=== PATIENT | male | born 1970 | race Two or more races ===

== ENCOUNTER 2016-11-15 11:21 | Outpatient (CLI) ==
[2013-05-02 15:45] VITALS: BMI 28.5
--- NOTE | 2016-11-15 13:12 | MRI ---
EXAM: MRI lumbar spine without IV contrast. DATE: 11/15/2016. HISTORY: Low back pain, left side sciatica. TECHNIQUE: Sagittal and axial T1W and T2W sequences of the lumbar spine along with sagittal IR and coronal T2W sequences were obtained using 1.2 Janna magnet. No IV contrast. COMPARISON: None. FINDINGS: There are five [id number] lumbar vertebra. At the lumbosacral junction, there is a transitional vertebra consistent with partial lumbarization of S1. There is no lumbar scoliosis. A 2 mm anterior subluxation of L5 relative to S1 is due to facet dise ase. No other subluxation, acute fracture, osseous malignancy, or pars interarticularis defect is i dentified. Lumbar vertebra are normal in height. Bone marrow signal is normal. Lumbar interverteb ral discs are normal in height. A small disc space has formed at S1-2. No sacral fracture or stres s reaction is evident. SI joints are unremarkable. Conus medullaris terminates at T12-L1. Visible spinal cord is normal. No retroperitoneal lymphadenopathy, paraspinal mass, or aortic aneurysm is detected. Paraspinal mus culature is symmetric bilaterally. Visible portions of the liver, adrenal glands, and kidneys are n ormal. Small number descending colon diverticuli are suspected. Segmental analysis: T12-L1: Normal. L1-2: Minimal left foraminal to far lateral disc bulge causes minor left foraminal narrowing. No c entral canal stenosis. L2-3: Normal. L3-4: Normal. L4-5: Minimal posterior to foraminal disc bulge and minor facet arthropathy cause triangulation of the canal, mild right foraminal stenosis, and minor/mild left foraminal narrowing. L5-S1: Minor anterior subluxation of L5, small concentric disc bulge, marked bilateral facet arthro randa, and moderate ligamentum flavum hypertrophy cause marked central canal stenosis, mild/moderate foraminal stenosis, and mild left foraminal narrowing. Each L5 nerve root contacts the disc bulge in the foramen. Small right facet effusion is present. S1-2: Thecal sac is narrowed due to short pedicles and epidural fat. IMPRESSIONS: 1. Five classic lumbar vertebra, plus partial lumbarization of S1. 2. Marked facet arthropathy, small disc bulge, marked central stenosis, bilateral foraminal stenose s, and compromise of each L5 nerve root near the foramen - - make L5-S1 the most likely level to be symptomatic.
== END 2016-11-15 11:22 | disposition home or self-care (01) ==
LOC: RAD 11:21
PROVIDERS: ATTEND Family Medicine
DX: M54.42 Lumbago with sciatica, left side (principal)

== ENCOUNTER 2017-01-11 23:29 | Emergency (ER) ==
[2017-01-11 23:38] VITALS: BP 160/100; TEMP 97.4; BMI 33.5
[2017-01-12] MEDS ORDERED: ZOFRAN 4 MG/2 ML IVP STA (00:07)
[2017-01-12] MEDS ORDERED: PROTONIX IV IVP STA (00:07)
[2017-01-12] MEDS ORDERED: SODIUM CHLORIDE 1,000 ML IV STA (00:07)
[2017-01-12] MEDS ORDERED: MORPHINE 2 MG/ML SYRINGE IVP STA (00:07)
[2017-01-12 00:23] LABS: BASOPHILS % (AUTO) 0.2 % (0.0-3.0); HEMATOCRIT 44.1 % (42.0-52.0); HEMOGLOBIN 15.6 g/dl (14.0-18.0); IMMATURE GRANULOCYTE % (AUTO) 1.1 % (0.0-5.0); LYMPHOCYTES # (AUTO) 1.3 K/uL (0.60-3.4); LYMPHOCYTES % (AUTO) 15.6 (10.0-50.0); MEAN CORPUSCULAR HEMOGLOBIN 32.8 pg (27.0-31.0); MEAN CORPUSCULAR HGB CONC 35.4 (31.8-35.4); MEAN CORPUSCULAR VOLUME 92.8 fl (80.0-94.0); MONOCYTES # (AUTO) 0.7 K/uL (0.4-2.0); MONOCYTES % (AUTO) 8.1 (0-10); NEUTROPHILS # (AUTO) 6.3 K/ul (2.0-6.9); PLATELET COUNT 167 10^3/uL (140-440); RED BLOOD COUNT 4.75 10^6/ul (4.70-6.10); WHITE BLOOD COUNT 8.39 K/ul (4.2-10.2)
[2017-01-12 00:53] LABS: ALANINE AMINOTRANSFERASE 76 U/L (12-78); ALBUMIN/GLOBULIN RATIO 1.14; ALKALINE PHOSPHATASE 86 U/L (50-136); AMYLASE 115 U/L (25-115); ANION GAP 10.3; ASPARTATE AMINO TRANSFERASE 39 U/L (15-37); BILIRUBIN,TOTAL 0.33 mg/dL (0.00-1.20); BLOOD UREA NITROGEN 20 mg/dL (7-18); BUN/CREATININE RATIO 22.47; CALCIUM 9.2 mg/dL (8.2-10.2); CARBON DIOXIDE 31 mmol/L (21-32); CHLORIDE 101 mmol/L (98-107); CREATINE KINASE 128 U/L; CREATININE 0.89 mg/dL (0.60-1.10); GLUCOSE 198 mg/dL (70-100); LIPASE 79 U/L (8-78); POTASSIUM 4.3 mmol/L (3.5-5.1); SODIUM 138 mmol/L (136-145); TOTAL PROTEIN 7.5 g/dL (6.4-8.2)
[2017-01-12 00:57] LABS: CREATINE KINASE MB 2.6 ng/ml (0.0-3.6)
--- NOTE | 2017-01-12 01:47 | CT ---
Exam: CT angiography of the chest History: Left chest pain Technique: [address] of the chest utilizing CT angiography protocol. Multiplanar and th ree-dimensional reformations were performed. FINDINGS: Technically adequate for evaluation of pulmonary arteries and aorta. There are no pulmon yanet artery filling defects. The aorta is normal. No pathologic lymph node enlargement or abundance . Normal heart and pericardium. The lung windows show no pulmonary parenchymal abnormalities. No acute findings of the chest wall soft tissues or bony thorax. No acute findings of the upper abdome n. Impression: 1. No evidence of pulmonary artery thrombus. No abnormalities of the chest.
--- NOTE | 2017-01-12 04:53 | ED.PDOC ---
General ED Provider: Dr. ZENA RAMOS-ER Chief Complaint: Chest Pain Stated Complaint: my chest is hurting Time Seen by Physician: 23:35 Mode of Arrival: Walk-In Information Source: Patient, Family Exam Limitations: No limitations Primary Care Provider: ZENA RAMOS Nursing and Triage Documentation Reviewed and Agree: Yes Cardiovascular Complaint Exam - Chest Pain Complaint/Exam Onset: Gradual Duration: 30 min Symptoms Are: Still present Timing: Constant Initial Severity: Mild Current Severity: Moderate Location: Reports: Discrete, Left anterior Pain Radiates: Reports: None Character: Reports: Dull, Aching, Heaviness, Pressure Aggravating: Reports: None Alleviating: Reports: None Associated Signs and Symptoms: Denies: Diaphoresis, Nausea, Vomiting, Fever, Palpitations, Cough, Hemoptysis, Back pain, Abdominal pain, Dizziness, Short of air, Calf pain, Calf swelling Related Surgical History: Reports: None History of Healthcare-Acquired Pneumonia: Reports: No AMI/ACS Risk Factors: Reports: Diabetes TAD Risk Factors: Reports: None Pulmonary Embolism Risk Factors: Reports: None Prior Care for this Complaint: No Recent Stress Test: No Recent Echo/LV Function: No JVD Present: No Subcutaneous Emphysema Present: No Diminshed Breath Sounds: No Reproducible Chest Wall Pain: No Bilateral Pulses Present: Yes Unequal Pulses Noted: No If Risk Factors for PE Consider: Chest CT with contrast If Risk Factors for TAD Consider: Chest CT with contrast Tractor Drill Operator Consulted: No Differential Diagnoses: ACS, Chest Wall Pain, GI Diseasae, Pulmonary Embolism Quality Indicator For Non-Traumatic Chest Pain/Syncope: EKG Performed Review of Systems - Review Of Systems Constitutional: Reports: No symptoms Eyes: Reports: No symptoms Ears, Nose, Mouth, Throat: Reports: No symptoms Respiratory: Reports: No symptoms Cardiac: Reports: Chest pain GI: Reports: No symptoms : Reports: No symptoms Musculoskeletal: Reports: No symptoms Skin: Reports: No symptoms Neurological: Reports: No symptoms Endocrine: Reports: No symptoms Hematologic/Lymphatic: Reports: No symptoms All Other Systems: Reviewed and Negative Past Medical History - Past Medical History Endocrine: Reports: DM 2 Cardiovascular: Reports: None Respiratory: Reports: None Hematological: Reports: None Gastrointestinal: Reports: None Genitourinary: Reports: None Neuro/Psych: Reports: None Musculoskeletal: Reports: None Cancer: Reports: None - Surgical History General Surgical History: Reports: Unknown - Family History Family History: Reports: Unknown - Social History Smoking Status: Never smoker Hx Substance Use: No Alcohol Screening: Occasionally Lives: With family Physical Exam - Physical Exam Appearance: Well-appearing, No pain distress, Well-nourished Pain Distress: Moderate Eyes: DIEGO, EOMI, Conjunctiva clear ENT: Ears normal, Nose normal, Oropharynx normal Neck: Supple Respiratory: Airway patent Cardiovascular: RRR, Pulses normal, No rub, No murmur GI/: Soft, Nontender, No masses, Bowel sounds normal, No Organomegaly Musculoskeletal: Normal strength, ROM intact, No edema, No calf tenderness Skin: Warm, Dry, Normal color Neurological: Sensation intact, Motor intact, Reflexes intact, Cranial nerves intact, Alert, Oriented Psychiatric: Affect appropriate Interpretation - Radiology Interpretation Radiology Interpretation By: Radiologist Radiology Results: Negative Exam Interpreted: CT Scan - EKG Interpretation Time of EKG #1: 23:45 Rate: Gian Rhythm: Sinus Ectopy: None [place]: NL ST Segment: Normal Time of EKG #2: 03:25 Rate: Normal Rhythm: Sinus Ectopy: None [place]: NL ST Segment: Normal EKG Interpretation: nsr Re-Evaluation - Re-Evaluation Time of Re-Evaluation: 04:54 Status: Improved Vital Signs Stable: No Pain Level: 0 Appearance: NAD Lungs: Clear Skin: Warm and Dry Neuro: Alert and Oriented X3 CV: RRR Critical Care Note - Critical Care Note Total Time (mins): 0 Course - Course Hematology/Chemistry: 01/12/17 00:10 01/12/17 00:10 Orders, Labs, Meds: Lab Review 01/12/17 01/12/17 00:10 03:45 WBC 8.39 RBC 4.75 Hgb 15.6 Hct 44.1 MCV 92.8 MCH 32.8 H MCHC 35.4 RDW Coeff of Antonio 13.4 Plt Count 167 Immature Gran % (Auto) 1.1 Neut % (Auto) 75.0 Lymph % (Auto) 15.6 [place] % (Auto) 8.1 Eos % (Auto) 0.0 Baso % (Auto) 0.2 Immature Gran # (Auto) 0.1 Neut # 6.3 Lymph # 1.3 [place] # 0.7 Eos # 0.0 Baso # 0.0 D-Dimer (Manual) 207.38 Sodium 138 Potassium 4.3 Chloride 101 Carbon Dioxide 31 Anion Gap 10.3 BUN 20 H Creatinine 0.89 Estimated GFR (MDRD) 91.00 BUN/Creatinine Ratio 22.47 Glucose 198 H Calcium 9.2 Total Bilirubin 0.33 AST 39 H ALT 76 Alkaline Phosphatase 86 Total Creatine Kinase 128 CK-MB (CK-2) 2.6 CK-MB (CK-2) % 2.41464 Troponin I < 0.0100 < 0.0100 Total Protein 7.5 Albumin 4.0 Globulin 3.5 Albumin/Globulin Ratio 1.14 Amylase 115 Lipase 79 H Orders Category Date Time Status EKG-(ED ONLY) Stat CARDIO 01/12/17 00:06 Completed EKG-(ED ONLY) Stat CARDIO 01/12/17 03:22 Ordered NPO REMINDER: IMAGING ONCE CARE 01/12/17 00:08 Completed ED RESISTOR TESTER APPLIED .ONCE EMERGENCY 01/12/17 00:07 Active ED IV/MEDIPORT/POWERPORT .ONCE EMERGENCY 01/12/17 00:07 Active AMYLASE Stat LAB 01/12/17 00:10 Completed CBC W/ AUTO DIFF Stat LAB 01/12/17 00:10 Completed COMPREHENSIVE METABOLIC PANEL Stat LAB 01/12/17 00:10 Completed CREATINE KINASE Stat LAB 01/12/17 00:10 Completed D-DIMER Stat LAB 01/12/17 03:45 Completed LIPASE Stat LAB 01/12/17 00:10 Completed TROPONIN I Stat LAB 01/12/17 00:10 Completed TROPONIN I Stat LAB 01/12/17 03:45 Completed 0.9 % Sodium Chloride [Saline Flush] MEDS 01/12/17 00:07 Ordered 1 syr IVF PRN PRN Morphine Sulfate [Morphine 2 mg/ml Syringe] MEDS 01/12/17 00:07 Discontinued 2 mg IVP ONCE STA Ondansetron HCl/Pf [Zofran 4 mg/2 ml] MEDS 01/12/17 00:07 Discontinued 4 mg IVP ONCE STA Pantoprazole Sodium [Protonix IV] MEDS 01/12/17 00:07 Discontinued 40 mg IVP ONCE STA Sodium Chloride 0.9% [Sodium Chloride] 1,000 ml MEDS 01/12/17 00:07 Active IV 100 mls/hr CT CHEST PE PROTOCOL Stat RADS 01/12/17 00:08 Completed Medications Generic Name Dose Route Start Last Admin Trade Name Freq PRN Reason Stop Dose Admin Sodium Chloride 1,000 mls @ 100 mls/hr 01/12/17 00:07 01/12/17 00:28 Sodium Chloride IV 01/12/17 10:06 100 mls/hr .Q10H STA Administration Sodium Chloride 1 syr 01/12/17 00:07 01/12/17 00:27 Saline Flush IVF 1 syr PRN PRN Administration To flush IV Discontinued Medications Generic Name Dose Route Start Last Admin Trade Name Freq PRN Reason Stop Dose Admin Morphine Sulfate 2 mg 01/12/17 00:07 01/12/17 00:19 Morphine 2 Mg/Ml Syringe IVP 01/12/17 00:08 2 mg ONCE STA Administration Ondansetron HCl 4 mg 01/12/17 00:07 01/12/17 00:23 Zofran 4 Mg/2 Ml IVP 01/12/17 00:08 4 mg ONCE STA Administration Pantoprazole Sodium 40 mg 01/12/17 00:07 01/12/17 00:24 Protonix Iv IVP 01/12/17 00:08 40 mg ONCE STA Administration Vital Signs: Temp Pulse Resp BP Pulse Ox 01/11/17 23:29 97.4 F L 62 16 160/100 H 98 TONEY Risk Score TONEY Risk Score: Risk Score Odds of by 30D 0 0.1 (0.1-0.2) 1 0.3 (0.2-0.3) 2 0.4 (0.3-0.5) 3 0.7 (0.6-0.9) 4 1.2 (1.0-1.5) 5 2.2 (1.9-2.6) 6 3.0 (2.5-3.6) 7 4.8 (3.8-6.1) Departure - Departure Time of Disposition: 04:54 Disposition: HOME SELF-CARE Discharge Problem: Chest pain Instructions: Chest Pain (ED) Condition: Good Pt referred to PMD for follow-up: Yes Additional Instructions: hold metformin till saturday---protonix 40mg q daily #30---see me next week to schedule stress test--if any further chest pain--return here--start 81mg asa per day Allergies/Adverse Reactions: Allergies No Known Drug Allergies Adverse Reaction (Verified 01/11/17 23:38) Home Medications: Ambulatory Orders Metformin HCl [Fortamet] 1,000 mg PO BID 05/02/13 Hydrocodone/Acetaminophen [Hydrocodon-Acetaminophen 5-325] 1 each PO ev 4 hrs PRN 02/15/16 Methylprednisolone [Medrol Dosepak] 4 mg PO DIRECTED 01/11/17 Disposition Discussed With: Patient
== END 2017-01-12 05:05 | disposition home or self-care (01) ==
LOC: ED 23:29
DX: R07.9 Chest pain, unspecified (principal); E11.9 Type 2 diabetes mellitus without complications; Z79.899 Other long term (current) drug therapy
CPT/HCPCS: 36415; 80053; 82150; 82550; 82553; 83690; 84484; 85025; 85379; 93005; 93010; 96361; 96374; 96375; 99283

== ENCOUNTER 2017-02-08 23:02 | Emergency (ER) ==
[2017-02-08 23:12] VITALS: BP 156/92; TEMP 97.4; BMI 31.6
[2017-02-08] MEDS ORDERED: NORVASC PO STA (23:21)
[2017-02-08 23:34] LABS: BASOPHILS % (AUTO) 0.6 % (0.0-3.0); EOSINOPHILS # (AUTO) 0.1 K/ul (0.0-0.7); HEMATOCRIT 43.4 % (42.0-52.0); HEMOGLOBIN 15.5 g/dl (14.0-18.0); IMMATURE GRANULOCYTE % (AUTO) 0.4 % (0.0-5.0); LYMPHOCYTES # (AUTO) 2.5 K/uL (0.60-3.4); LYMPHOCYTES % (AUTO) 35.7 (10.0-50.0); MEAN CORPUSCULAR HEMOGLOBIN 33.2 pg (27.0-31.0); MEAN CORPUSCULAR HGB CONC 35.7 (31.8-35.4); MEAN CORPUSCULAR VOLUME 92.9 fl (80.0-94.0); MONOCYTES # (AUTO) 0.6 K/uL (0.4-2.0); MONOCYTES % (AUTO) 8.5 (0-10); NEUTROPHILS # (AUTO) 3.8 K/ul (2.0-6.9); NEUTROPHILS % (AUTO) 53.8; PLATELET COUNT 150 10^3/uL (140-440); RED BLOOD COUNT 4.67 10^6/ul (4.70-6.10); WHITE BLOOD COUNT 7.06 K/ul (4.2-10.2)
--- NOTE | 2017-02-08 23:42 | CT ---
EXAM: CT scan brain without contrast HISTORY: Headache COMPARISON: None. FINDINGS: Contiguous axial images obtained from the skull base to the convexities without contrast utilizing 5-mm collimation. Sagittal and coronal reconstructions were imaged and reviewed. The vent ricles and CSF spaces are within normal limits. There are no acute intracranial findings. There is opacification of the left sphenoid sinus. Right mastoid air cells clear. There has been prior lef t mastoidectomy. IMPRESSION: No acute intracranial findings. Benign sinus disease
[2017-02-09 00:14] LABS: ALANINE AMINOTRANSFERASE 91 U/L (12-78); ALBUMIN/GLOBULIN RATIO 1.08; ALKALINE PHOSPHATASE 79 U/L (50-136); ANION GAP 13.9; ASPARTATE AMINO TRANSFERASE 54 U/L (15-37); BLOOD UREA NITROGEN 19 mg/dL (7-18); BUN/CREATININE RATIO 20.87; CALCIUM 9.6 mg/dL (8.2-10.2); CARBON DIOXIDE 28 mmol/L (21-32); CHLORIDE 103 mmol/L (98-107); CREATINE KINASE 321 U/L; CREATININE 0.91 mg/dL (0.60-1.10); GLUCOSE 98 mg/dL (70-100); POTASSIUM 3.9 mmol/L (3.5-5.1); SODIUM 141 mmol/L (136-145); TOTAL PROTEIN 7.7 g/dL (6.4-8.2)
[2017-02-09 00:15] LABS: CREATINE KINASE MB 4.8 ng/ml (0.0-3.6)
[2017-02-09] MEDS ORDERED: VASOTEC IV IVP STA (00:39)
[2017-02-09] MEDS ORDERED: APRESOLINE PO STA (00:40)
[2017-02-09] MEDS ORDERED: NORCO 5-325 PO STA (00:41)
[2017-02-09 00:49] LABS: BILIRUBIN,URINE Negative (NEGATIVE); KETONES,URINE Negative (NEGATIVE); LEUKOCYTE ESTERASE ,URINE Negative (NEGATIVE); NITRITE,URINE Negative (NEGATIVE); PROTEIN,URINE Negative (NEGATIVE); URINE, BLOOD Negative (NEGATIVE)
[2017-02-09 00:50] LABS: ADD URINE MICROSCOPIC NO
--- NOTE | 2017-02-09 02:20 | ED.PDOC ---
General ED Provider: Dr. ZENA RAMOS-ER Chief Complaint: Headache Stated Complaint: my bp is up and my pulse is low Time Seen by Physician: 23:05 Mode of Arrival: Walk-In Information Source: Patient Exam Limitations: No limitations Primary Care Provider: ZENA RAMOS Nursing and Triage Documentation Reviewed and Agree: Yes Cardiovascular Complaint Exam - Hypertension Complaint/Exam Onset/Duration: today Symptoms Are: Still present Timing: Constant Reported B/P Prior to Arrival: 180/90 Aggravating: Reports: None Alleviating: Reports: None Associated Signs and Symptoms: Reports: Headache Related History: Reports: Current Beta Francia Related Surgical History: Reports: None Cardiac Risk Factors: Reports: Hypertension Recent Change in Medications: No A/V Nicking: No Papilledema Present: No JVD Present: No Carotid Bruit Present: No Femoral Pulses Bounding: No Differential Diagnoses: Hypertension Quality Indicator For Non-Traumatic Chest Pain/Syncope: EKG Performed Review of Systems - Review Of Systems Constitutional: Reports: No symptoms Eyes: Reports: No symptoms Ears, Nose, Mouth, Throat: Reports: No symptoms Respiratory: Reports: No symptoms Cardiac: Reports: Lightheadedness GI: Reports: No symptoms : Reports: No symptoms Musculoskeletal: Reports: No symptoms Skin: Reports: No symptoms Neurological: Reports: No symptoms Endocrine: Reports: No symptoms Hematologic/Lymphatic: Reports: No symptoms All Other Systems: Reviewed and Negative Past Medical History - Past Medical History Endocrine: Reports: DM 2 Cardiovascular: Reports: None Respiratory: Reports: None Hematological: Reports: None Gastrointestinal: Reports: None Genitourinary: Reports: None Neuro/Psych: Reports: None Musculoskeletal: Reports: None Cancer: Reports: None - Surgical History General Surgical History: Reports: Unknown - Family History Family History: Reports: Unknown - Social History Smoking Status: Never smoker Hx Substance Use: No Alcohol Screening: Occasionally Lives: With family - Immunizations Tetanus Shot up to Date: No Physical Exam - Physical Exam Appearance: Well-appearing, No pain distress, Well-nourished Pain Distress: Mild Eyes: DIEGO, EOMI, Conjunctiva clear ENT: Ears normal, Nose normal, Oropharynx normal Neck: Supple Respiratory: Airway patent, Breath sounds clear, Breath sounds equal, Respirations nonlabored Cardiovascular: RRR, No rub, No murmur, Bradycardia GI/: Soft Musculoskeletal: Normal strength Skin: Warm, Dry, Normal color Neurological: Sensation intact, Motor intact, Reflexes intact, Cranial nerves intact, Alert, Oriented Psychiatric: Affect appropriate, Mood appropriate Interpretation - Radiology Interpretation Radiology Interpretation By: Radiologist Radiology Results: Negative Exam Interpreted: CT Scan Re-Evaluation - Re-Evaluation Time of Re-Evaluation: 02:20 (bp 120/78--no mohamud) Status: Improved Vital Signs Stable: Yes Pain Level: 0 Appearance: NAD Lungs: Clear Skin: Warm and Dry Neuro: Alert and Oriented X3 CV: RRR Critical Care Note - Critical Care Note Total Time (mins): 0 Course - Course Hematology/Chemistry: 02/08/17 23:33 02/08/17 23:33 Orders, Labs, Meds: Lab Review 02/08/17 02/09/17 23:33 00:45 WBC 7.06 RBC 4.67 L Hgb 15.5 Hct 43.4 MCV 92.9 MCH 33.2 H MCHC 35.7 H RDW Coeff of Antonio 13.8 Plt Count 150 Immature Gran % (Auto) 0.4 Neut % (Auto) 53.8 Lymph % (Auto) 35.7 [place] % (Auto) 8.5 Eos % (Auto) 1.0 Baso % (Auto) 0.6 Immature Gran # (Auto) 0.0 Neut # 3.8 Lymph # 2.5 [place] # 0.6 Eos # 0.1 Baso # 0.0 Sodium 141 Potassium 3.9 Chloride 103 Carbon Dioxide 28 Anion Gap 13.9 BUN 19 H Creatinine 0.91 Estimated GFR (MDRD) 89.00 BUN/Creatinine Ratio 20.87 Glucose 98 Calcium 9.6 Total Bilirubin 0.40 AST 54 H ALT 91 H Alkaline Phosphatase 79 Total Creatine Kinase 321 CK-MB (CK-2) 4.8 H CK-MB (CK-2) % 1.04337 Troponin I < 0.0100 Total Protein 7.7 Albumin 4.0 Globulin 3.7 Albumin/Globulin Ratio 1.08 TSH 3.670 Free T4 0.92 Urine Color Yellow Urine Clarity Clear Urine pH 6.0 Ur Specific Marshall <=1.005 Urine Protein Negative Urine Glucose (UA) Negative Urine Ketones Negative Urine Blood Negative Urine Nitrite Negative Urine Bilirubin Negative Urine Urobilinogen 0.2 Ur Leukocyte Esterase Negative Orders Category Date Time Status EKG-(ED ONLY) Stat CARDIO 02/08/17 23:19 Completed IV [ED IV/MEDIPORT/POWERPORT] .ONCE EMERGENCY 02/09/17 00:39 Active CBC W/ AUTO DIFF Stat LAB 02/08/17 23:33 Completed COMPREHENSIVE METABOLIC PANEL Stat LAB 02/08/17 23:33 Completed CREATINE KINASE Stat LAB 02/08/17 23:33 Completed FREE T4 (FREE THYROXINE) Stat LAB 02/08/17 23:33 Completed THYROID STIMULATING HORMONE Stat LAB 02/08/17 23:33 Completed TROPONIN I Stat LAB 02/08/17 23:33 Completed UA [URINALYSIS C & S IF INDICATED] Stat LAB 02/09/17 00:45 Completed 0.9 % Sodium Chloride [Saline Flush] MEDS 02/09/17 00:39 Ordered 1 syr IVF PRN PRN Amlodipine Besylate [Norvasc] MEDS 02/08/17 23:21 Discontinued 10 mg PO ONCE STA Enalaprilat Dihydrate [Vasotec IV] MEDS 02/09/17 00:39 Discontinued 1.25 mg IVP ONCE STA Hydralazine HCl [Apresoline] MEDS 02/09/17 00:40 Discontinued 10 mg PO ONCE STA Hydrocodone Bit/Acetaminophen [[place] 5-325] MEDS 02/09/17 00:41 Discontinued 1 tab PO ONCE STA CT HEAD W/O CONTRAST Stat RADS 02/08/17 23:19 Completed Medications Generic Name Dose Route Start Last Admin Trade Name Freq PRN Reason Stop Dose Admin Sodium Chloride 1 syr 02/09/17 00:39 02/09/17 01:03 Saline Flush IVF 1 syr PRN PRN Administration To flush IV Discontinued Medications Generic Name Dose Route Start Last Admin Trade Name Freq PRN Reason Stop Dose Admin Acetaminophen/Hydrocodone Bitart 1 tab 02/09/17 00:41 02/09/17 00:59 [place] 5-325 PO 02/09/17 00:42 1 tab ONCE STA Administration Amlodipine Besylate 10 mg 02/08/17 23:21 02/08/17 23:33 Norvasc PO 02/08/17 23:22 10 mg ONCE STA Administration Enalaprilat 1.25 mg 02/09/17 00:39 02/09/17 01:00 Vasotec Iv IVP 02/09/17 00:40 1.25 mg ONCE STA Administration Hydralazine HCl 10 mg 02/09/17 00:40 02/09/17 00:59 Apresoline PO 02/09/17 00:41 10 mg ONCE STA Administration Vital Signs: Temp Pulse Resp BP Pulse Ox 02/08/17 23:05 97.4 F L 48 L 16 156/92 H 96 TONEY Risk Score TONEY Risk Score: Risk Score Odds of by 30D 0 0.1 (0.1-0.2) 1 0.3 (0.2-0.3) 2 0.4 (0.3-0.5) 3 0.7 (0.6-0.9) 4 1.2 (1.0-1.5) 5 2.2 (1.9-2.6) 6 3.0 (2.5-3.6) 7 4.8 (3.8-6.1) Departure - Departure Time of Disposition: 02:20 Disposition: HOME SELF-CARE Discharge Problem: Bradycardia HTN (hypertension) Qualifiers: Hypertension type: essential hypertension Qualifier Code: (I10) Essential ( primary) hypertension Instructions: Chronic Hypertension (ED) Condition: Good Pt referred to PMD for follow-up: Yes Additional Instructions: decrease metoprolol to 25mg q daily in am--procardia xl 30mg bid #60--monitor bp over the weekend--come by office on saturday for bp check Allergies/Adverse Reactions: Allergies No Known Drug Allergies Adverse Reaction (Verified 02/08/17 23:16) Home Medications: Ambulatory Orders Metformin HCl [Fortamet] 1,000 mg PO BID 05/02/13 Hydrocodone/Acetaminophen [Hydrocodon-Acetaminophen 5-325] 1 each PO ev 4 hrs PRN 02/15/16 Metoprolol Tartrate [Lopressor] 50 mg PO BID 02/08/17 Disposition Discussed With: Patient
== END 2017-02-09 02:37 | disposition home or self-care (01) ==
LOC: ED 23:02
DX: I10 Essential (primary) hypertension (principal); R00.1 Bradycardia, unspecified; E11.9 Type 2 diabetes mellitus without complications; Z79.899 Other long term (current) drug therapy
CPT/HCPCS: 36415; 80053; 81001; 82550; 82553; 84439; 84443; 84484; 85025; 93005; 93010; 96374; 99283

== ENCOUNTER 2017-02-11 14:00 | Outpatient (RCR) ==
--- NOTE | 2017-02-04 09:29 | RS.OPPTEV2 ---
Date of Note: 01/30/17 Visit #: 1 Date of Evaluation: 01/30/17 Payer Source: Medicaid Treatment Diagnosis: Low back pain, radicular symptoms History of Condition/Mechanism of Injury:: Reports low back pain began in July of last year. States he does not know of any injury. Prior Level of Function.....Patient was independent with: ADL's, Self Care, Work /Vocation, Caregiving, Ambulation/Mobility, Community Integration/Access Functional Limitations: ADL's, Reaching, Pushing, Pulling, Lifting, Carrying, Sitting, Standing, Bending, Squatting, Ambulation, Community Access/Integration Current Subjective/complaints:: Reports low back and Left LE pain all the time. States he has tingling into the LLE on a daily basis. Describes having times of cramping in the left LE. He reports walking and activity increases his pain. 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 States is unable to work as many consecutive days as he used to because of his pain. States he was exercising at the gym and riding a bike outside for exercise, but has stopped all that activity for the last three months. States he received an injection three weeks and it helped for about 10 days. Reports difficulty sleeping due to pain. Medical History Medical History: Diabetes, Arthritis Smoking Status: Never smoker Diagnostic Testing/Imaging:: MRI of lumbar spine w/o contrast on 11/15/16. Impression: "Marked facet arthropathy, small disc bulge, marked central stenosis, bilateral foraminal stenosis, compromise of each L5 nerve root near the foramen--make L5-S1 the most likely level to be symptomatic." Hx Home Medications: Meloxicam, Methylprednisolone, Ibuprofen Patient's Goals: His goal is to get relief of back and left LE radiating pain and be able to return to his normal home and work activities. Pain Assessment - Pain Description Pain Location: low back and left LE Pain Description: Radiating, Aching Current Pain Intensity: 8/10 Worst Pain Intensity: not rated Functional Outcome Measure Other: Patient did not complete Oswestry LBP ,except for the first two sections. " Pain comes and goes and is severe." and "Because of the pain I am unable to do any washing and dressing without help." - G Codes & Severity Modifier G Codes & Modifier: NA Source of G Code score: NA Observation - Observation Posture: Normal Gait - Gait Pattern Gait Comments: Patient ambulates independently with a slight guarded gait. - ROM Lumbar Flexion: Hand reach to Mid-Shins Sidebending to Left: Reach to Lateral Joint Line Sidebending to Right: Reach to Lateral Joint Line Comments: Lumbar extension causes pain immediately with ROM beyond neutral. Lower trunk rotation to his right increases his pain. - Strength Trunk Rotation: 4+ Good + Comments: Left hip flexion 4+/5, all else of bilateral LE's 5/5 throughout. - Special Tests GINA Test: Negative Left, Negative Right SLR Test: Negative Right, Positive Left Seated Dural Stretch Test: Negative Right, Positive Left SI Joint Compression: Negative Palpation Comments:: Patient reports no tenderness of the lumbar paraspinals or over either SI joint. Demonstrates minimal to moderate muscle guarding along the lumbar paraspinals. Sensation - Sensation Right Lower Extremity: Intact/Normal Left Lower Extremity: Intact/Normal Additional Comments: Additional Comments: Left SLR to 40-45 degrees, Right SLR to 45-50 degrees. - Traction Treatment Method: Mechanical, Intermittent, Lumbar Patient Position: Supine Amount of Force Applied: 40 lbs Hold Time: 30 sec Rest Time: 5 sec Duration of treatment: 10 mins Interventions - Exercise/Activities/Manual Therapy Exercises/Activities: Instructed in bilateral HS stretch and isometric hip flexion for HEP. Manual Therapy: NA HOME EXERCISE PROGRAM: bilateral HS stretch and isometric hip flexion - Charges Total Direct Minutes: 65 mins Total Treatment Time: 65 mins Procedures billed for this date of service:: [facility] Low complexity X 4 Assessment Assessment: Patient presents to therapy with a diagnosis of low back pain with left LE radiating pain. He reports difficulty tolerating prolonged activity and standing. Reports pain into the left LE is constant, but changes in intensity. His MRI show both facet arthropathy and disc bulge causing compromise of L5 nerve roots. He demonstrates tightness in the HS and slight weakness of the left hip flexor. He may benefit from modalities to reduce muscle tone, stretching, and trial of lumbar traction to reduce radiating symptoms. Patient Education: Education of diagnosis, Body/Joint mechanics, Home Exercise Program, Home Safety, Activity Modification, Education of Plan of Care Rehab Potential: Good Short Term Goals Goal #1: Patient independent in basic HEP. Goal to be met by: 02/15/17 Goal #2: Muscle tone at lumbar paraspinals decreased to normal. Goal to be met by: 02/15/17 Goal #3: Left LE symptoms localized to the low back. Goal to be met by: 02/15/17 Goal #4: Pain decreased to <6/10. Goal to be met by: 02/15/17 Retirement Goals Goal #1: Pt knows HEP and to continue ex's to maintain functional level at D/C. Goal to be met by: 03/03/17 Goal #2: Patient able to perform home and work activities w/ min. pain. Goal to be met by: 03/03/17 Goal #3: Pt able to sleep 6-8 hours without interruption from back/LLE pain. Goal to be met by: 03/03/17 Goal #4: Pt will demo. good understanding of back safety and proper body mechanics. Goal to be met by: 03/03/17 Plan - Treatment to be Provided Procedures: Therapeutic Exercises, Therapeutic Activity, Manual Therapy, Patient Education Modalities: Electrical Stimulation, Ultrasound/Phonophoresis, Cryotherapy, Hot Packs, Mechanical Traction (lumbar) - Treatment Plan Frequency: 3 X week Duration: 3 weeks ORDER # VISITS AND/OR THROUGH DATE: 03/03/17
--- NOTE | 2017-02-04 11:58 | RS.OPPTDN ---
Subjective Date of Note: 02/04/17 Visit #: 2 Date of Evaluation: 01/30/17 Payer Source: Medicaid Treatment Diagnosis: Low back pain, radicular symptoms Current Subjective/complaints:: Patient reports the L leg is hurting alot today.He has worked the last three days with difficulty.He is off from work today. Pain Assessment - Pain Description Pain Location: low back and left LE Pain Description: Radiating, Aching Current Pain Intensity: 8/10 - Heat/Cryotherapy Treatment: Hot Pack (20 mins. in supine to lumbar, prior to traction.) - Traction Treatment Method: Mechanical, Intermittent, Lumbar Patient Position: Supine Amount of Force Applied: 45# Hold Time: 30 secs. Rest Time: 5 secs. Duration of treatment: 15 mins. Traction Treatment Comment: Tolerates well. Interventions - Exercise/Activities/Manual Therapy Exercises/Activities: Reviewed HEP given by PT at last session while on traction. Total minutes of Exercise: 0 Manual Therapy: NA Total minutes of Manual Therapy: 0 HOME EXERCISE PROGRAM: bilateral HS stretch and isometric hip flexion - Charges Total Direct Minutes: 0 Total Treatment Time: 35 Procedures billed for this date of service:: hp,traction Assessment: Patient reports relief after traction,but does have facialgrimacing during initiating supine to sit transfer,along with guarded gait .Thegait was less antalgic as the distance progressed.He is attentive to recommendations regarding for HEP,use of ice or heat. Patient Education: Education of diagnosis, Body/Joint mechanics, Home Exercise Program, Home Safety, Activity Modification, Education of Plan of Care Short Term Goals Goal #1: Patient independent in basic HEP. Goal to be met by: 02/15/17 Progress towards Goal:: Progressing Goal #2: Muscle tone at lumbar paraspinals decreased to normal. Goal to be met by: 02/15/17 Goal #3: Left LE symptoms localized to the low back. Goal to be met by: 02/15/17 Goal #4: Pain decreased to <6/10. Goal to be met by: 02/15/17 (8/10) Progress towards Goal:: No Change Cone Operator Goals Goal #1: Pt knows HEP and to continue ex's to maintain functional level at D/C. Goal to be met by: 03/03/17 Progress towards goal: Progressing Goal #2: Patient able to perform home and work activities w/ min. pain. Goal to be met by: 03/03/17 Goal #3: Pt able to sleep 6-8 hours without interruption from back/LLE pain. Goal to be met by: 03/03/17 Goal #4: Pt will demo. good understanding of back safety and proper body mechanics. Goal to be met by: 03/03/17 Plan PLAN OF CARE EXPIRES ON:: 03/03/17 ORDER # VISITS AND/OR THROUGH DATE: 03/03/17 PLAN: Continue Plan of Care
--- NOTE | 2017-02-07 10:27 | RS.OPPTDN ---
Subjective Date of Note: 02/07/17 Visit #: 3 Date of Evaluation: 01/30/17 Payer Source: Medicaid Treatment Diagnosis: Low back pain, radicular symptoms Current Subjective/complaints:: Reports not working yesterday,so the back is better this morning,but does have to work this afternoon. Pain Assessment - Pain Description Pain Location: low back and left LE Pain Description: Radiating, Dull, Aching Current Pain Intensity: "minimal" Other Comments regarding Pain:: radiates down to the L knee - Heat/Cryotherapy Treatment: Hot Pack (20 mins. to lumbar prior to ex and traction) - Traction Treatment Method: Mechanical, Intermittent, Lumbar Patient Position: Supine Amount of Force Applied: 50# Hold Time: 30 secs, Rest Time: 5 secs. Duration of treatment: 15 mins. Traction Treatment Comment: Tolerates well. Interventions - Exercise/Activities/Manual Therapy Exercises/Activities: 20 mins. gentle stretches of SKTC,DKTC,piriformis stretches,patient education for HEP. Total minutes of Exercise: 20 Manual Therapy: NA Total minutes of Manual Therapy: 0 HOME EXERCISE PROGRAM: bilateral HS stretch and isometric hip flexion,gentle SKTC,DKTC piriformis stretches. - Charges Total Direct Minutes: 20 Total Treatment Time: 40 Procedures billed for this date of service:: hp,ex,traction Assessment: Patient reports sharp pain today with SKTC when hips are flexed past 90 degrees.He tolerates the hamstring stretches better as they progress today.He is tighter in the L piriformis ,as opposed to the R.He is attentive , asks appropriate questions regarding his HEP and pain management. Patient Education: Education of diagnosis, Body/Joint mechanics, Home Exercise Program, Home Safety, Activity Modification, Education of Plan of Care Patient demonstrates compliance with HEP?: Yes Short Term Goals Goal #1: Patient independent in basic HEP. Goal to be met by: 02/15/17 Progress towards Goal:: Progressing Goal #2: Muscle tone at lumbar paraspinals decreased to normal. Goal to be met by: 02/15/17 Goal #3: Left LE symptoms localized to the low back. Goal to be met by: 02/15/17 Progress towards Goal:: No Change Goal #4: Pain decreased to <6/10. Goal to be met by: 02/15/17 Progress towards Goal:: Progressing Long-Term Goals Goal #1: Pt knows HEP and to continue ex's to maintain functional level at D/C. Goal to be met by: 03/03/17 Progress towards goal: Progressing Goal #2: Patient able to perform home and work activities w/ min. pain. Goal to be met by: 03/03/17 Goal #3: Pt able to sleep 6-8 hours without interruption from back/LLE pain. Goal to be met by: 03/03/17 Goal #4: Pt will demo. good understanding of back safety and proper body mechanics. Goal to be met by: 03/03/17 Progress towards goal: Progressing Plan PLAN OF CARE EXPIRES ON:: 03/03/17 ORDER # VISITS AND/OR THROUGH DATE: 03/03/17 PLAN: Continue Plan of Care
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
--- NOTE | 2017-02-13 15:34 | RS.CXNS ---
Date of scheduled appointment: 02/13/17 Type: No Show Reason for Cancel/NS: unknown
--- NOTE | 2017-03-19 15:33 | RS.QUICKDC ---
Discharge from PT Date of Discharge: 02/27/17 Number of Visits: 3 Reason for Discharge: No appts. made after 02-13-17 appt.
== END 2017-02-27 ==
PROVIDERS: ATTEND Orthopaedic Surgery
DX: M48.06 Spinal stenosis, lumbar region (principal); M51.26 Other intervertebral disc displacement, lumbar region; M54.5 Low back pain

== ENCOUNTER 2017-03-25 14:06 | Outpatient (CLI) ==
--- NOTE | 2017-03-25 15:11 | US ---
EXAM: Ultrasound abdomen limited right upper quadrant HISTORY: Elevated liver enzymes COMPARISON: 11/17/2014 TECHNIQUE: Limited ultrasound abdomen right upper quadrant was performed FINDINGS: Pancreas obscured secondary to bowel gas shadowing. Liver diffusely increased in echogen icity. Liver normal in size. Main portal vein patent with direction of flow. Patient status post cholecystectomy. No biliary duct dilation with common bile duct measuring 0.5 cm. IMPRESSION: 1. Echogenic liver, consistent with hepatic steatosis and/or hepatic parenchymal disease. 2. Patient status post cholecystectomy. No biliary duct dilation.
== END 2017-03-25 14:07 | disposition home or self-care (01) ==
LOC: RAD 14:06
PROVIDERS: ATTEND Family Medicine
DX: R74.8 Abnormal levels of other serum enzymes (principal)

== ENCOUNTER 2017-05-17 16:36 | Emergency (ER) ==
[2017-05-17 16:43] VITALS: BP 125/76; TEMP 97.1; BMI 30.7
[2017-05-17] MEDS ORDERED: NORCO 10-325 PO STA (17:08)
[2017-05-17 17:18] LABS: BASOPHILS % (AUTO) 0.4 % (0.0-3.0); EOSINOPHILS # (AUTO) 0.1 K/ul (0.0-0.7); EOSINOPHILS % (AUTO) 0.9 % (0.0-7.0); HEMATOCRIT 42.5 % (42.0-52.0); HEMOGLOBIN 15.5 g/dl (14.0-18.0); IMMATURE GRANULOCYTE % (AUTO) 0.1 % (0.0-5.0); LYMPHOCYTES # (AUTO) 2.1 K/uL (0.60-3.4); LYMPHOCYTES % (AUTO) 27.2 (10.0-50.0); MEAN CORPUSCULAR HEMOGLOBIN 33.5 pg (27.0-31.0); MEAN CORPUSCULAR HGB CONC 36.5 (31.8-35.4); MONOCYTES # (AUTO) 0.5 K/uL (0.4-2.0); MONOCYTES % (AUTO) 7.2 (0-10); NEUTROPHILS # (AUTO) 4.8 K/ul (2.0-6.9); NEUTROPHILS % (AUTO) 64.2; PLATELET COUNT 169 10^3/uL (140-440); RED BLOOD COUNT 4.62 10^6/ul (4.70-6.10); WHITE BLOOD COUNT 7.53 K/ul (4.2-10.2)
[2017-05-17 17:35] LABS: ALBUMIN 4.1 g/dL (3.4-5.0); ALBUMIN/GLOBULIN RATIO 1.11; ANION GAP 16.3; BILIRUBIN,TOTAL 0.41 mg/dL (0.00-1.20); BUN/CREATININE RATIO 18.82; CALCIUM 9.5 mg/dL (8.2-10.2); CREATININE 0.85 mg/dL (0.60-1.10); POTASSIUM 4.3 mmol/L (3.5-5.1); TOTAL PROTEIN 7.8 g/dL (6.4-8.2)
--- NOTE | 2017-05-17 17:46 | CT ---
EXAM: CT brain without contrast HISTORY: Headache TECHNIQUE: CT of the brain without intravenous contrast FINDINGS: There is no acute hemorrhage midline shift or mass effect. No hydrocephalus or abnormal extra-axial fluid collection. No significant parenchymal attenuation abnormality. The bony cranium appears normal. The visualized paranasal sinuses are clear. Soft tissues without significant abnorm ality. IMPRESSION: 1. CT of the brain within normal limits.
--- NOTE | 2017-05-17 18:13 | ED.PDOC ---
General ED Provider: Dr. BUD STEWART Chief Complaint: Headache Stated Complaint: headache Time Seen by Physician: 16:45 (no neck stiffness ) Mode of Arrival: Walk-In Information Source: Patient Exam Limitations: No limitations Primary Care Provider: ZENA RAMOS Nursing and Triage Documentation Reviewed and Agree: Yes Neurological Complaint Exam - Headache Complaint/Exam Onset: Gradual Duration: 1 week Symptoms Are: Still present Timing: Intermittent Episodes Lasting: Hours Worst Headache Ever: No Initial Severity: Moderate Current Severity: Mild Location: Frontal, Temporal Character: Reports: Dull, Typical headache Aggravating: Reports: None Alleviating: Reports: None Associated Signs and Symptoms: Denies: Dizziness, Seizure, Nausea, Vomiting, Sinus pressure, Fever, Neck pain, Neck stiffness, Decreased LOC, Visual changes Related History: Reports: Similar episode Related Surgical History: Reports: None SAH Risk Factors: Reports: None Meningitis Risk Factors: Reports: None SDH Risk Factors: Reports: None Temporal Arteritis Risk Factors: Reports: None Normal Head CT Within Last 12 Months: Yes Fundoscopic Exam: Present: Normal Findings Papilledema Present: No Temporal Artery Tenderness: Present: None Sinus Tenderness: Present: None TMJ Tenderness: Present: None Glascow Coma Scale (see protocol): 15 Meningeal Signs Positive: No Pain on Passive Flexion-Positive Kernig's: No ROM Limited In: No Limitiations Focal Weakness: Present: None Focal Sensory Loss: Present: None Gait: Normal Nystagmus Present: No Gag Reflex Present: Yes Differential Diagnoses: Migraine, Tension Headache Review of Systems - Review Of Systems Constitutional: Reports: No symptoms Eyes: Reports: No symptoms Ears, Nose, Mouth, Throat: Reports: No symptoms Respiratory: Reports: No symptoms Cardiac: Reports: No symptoms GI: Reports: No symptoms : Reports: No symptoms Musculoskeletal: Reports: No symptoms Skin: Reports: No symptoms Neurological: Reports: Headache Endocrine: Reports: No symptoms Hematologic/Lymphatic: Reports: No symptoms All Other Systems: Reviewed and Negative Past Medical History - Past Medical History Endocrine: Reports: DM 2 Cardiovascular: Reports: None Respiratory: Reports: None Hematological: Reports: None Gastrointestinal: Reports: None Genitourinary: Reports: None Neuro/Psych: Reports: None Musculoskeletal: Reports: None Cancer: Reports: None - Surgical History General Surgical History: Reports: Unknown - Family History Family History: Reports: Unknown - Social History Smoking Status: Never smoker Hx Substance Use: No Alcohol Screening: Occasionally Physical Exam - Physical Exam Appearance: Well-appearing, No pain distress, Well-nourished Eyes: DIEGO, EOMI, Conjunctiva clear ENT: Ears normal, Nose normal, Oropharynx normal Respiratory: Airway patent, Breath sounds clear, Breath sounds equal, Respirations nonlabored Cardiovascular: RRR, Pulses normal, No rub, No murmur GI/: Soft, Nontender, No masses, Bowel sounds normal, No Organomegaly Musculoskeletal: Normal strength, ROM intact, No edema, No calf tenderness Skin: Warm, Dry, Normal color Neurological: Sensation intact, Motor intact, Reflexes intact, Cranial nerves intact, Alert, Oriented Psychiatric: Affect appropriate, Mood appropriate Interpretation - Radiology Interpretation Radiology Interpretation By: Radiologist Radiology Results: No acute changes Exam Interpreted: CT Scan Critical Care Note - Critical Care Note Total Time (mins): 0 Course - Course Hematology/Chemistry: 05/17/17 17:14 05/17/17 17:14 Orders, Labs, Meds: Lab Review 05/17/17 17:14 WBC 7.53 RBC 4.62 L Hgb 15.5 Hct 42.5 MCV 92.0 MCH 33.5 H MCHC 36.5 H RDW Coeff of [place] 13.2 Plt Count 169 Immature Gran % (Auto) 0.1 Neut % (Auto) 64.2 Lymph % (Auto) 27.2 [place] % (Auto) 7.2 Eos % (Auto) 0.9 Baso % (Auto) 0.4 Immature Gran # (Auto) 0.0 Neut # 4.8 Lymph # 2.1 [place] # 0.5 Eos # 0.1 Baso # 0.0 Sodium 144 Potassium 4.3 Chloride 105 Carbon Dioxide 27 Anion Gap 16.3 BUN 16 Creatinine 0.85 Estimated GFR (MDRD) 96.00 BUN/Creatinine Ratio 18.82 Glucose 114 H Calcium 9.5 Total Bilirubin 0.41 AST 43 H ALT 91 H Alkaline Phosphatase 77 Total Protein 7.8 Albumin 4.1 Globulin 3.7 Albumin/Globulin Ratio 1.11 Orders Category Date Time Status CBC W/ AUTO DIFF Stat LAB 05/17/17 17:14 Completed COMPREHENSIVE METABOLIC PANEL Stat LAB 05/17/17 17:14 Completed Hydrocodone Bit/Acetaminophen [[place] 10-325] MEDS 05/17/17 17:08 Discontinued 1 tab PO ONCE STA CT HEAD W/O CONTRAST Stat RADS 05/17/17 17:08 Completed Medications Discontinued Medications Generic Name Dose Route Start Last Admin Trade Name Cesar PRN Reason Stop Dose Admin Acetaminophen/Hydrocodone Bitart 1 tab 05/17/17 17:08 [place] 10-325 PO 05/17/17 17:09 ONCE STA Vital Signs: Temp Pulse Resp BP Pulse Ox 05/17/17 16:36 97.1 F L 91 H 20 125/76 97 Departure - Departure Time of Disposition: 18:13 Disposition: HOME SELF-CARE Discharge Problem: Headache Instructions: Migraine Headache (ED) Condition: Good Pt referred to PMD for follow-up: Yes Additional Instructions: Please call your Family Physician as soon as possible to schedule a follow-up appointment. Allergies/Adverse Reactions: Allergies No Known Drug Allergies Adverse Reaction (Verified 05/17/17 16:43) Home Medications: Ambulatory Orders Metformin HCl [Fortamet] 500 mg PO BID 05/02/13 Hydrocodone/Acetaminophen [Hydrocodon-Acetaminophen 5-325] 1 each PO ev 4 hrs PRN 02/15/16 Nifedipine [Procardia Xl] 30 mg PO BID 05/17/17
== END 2017-05-17 18:28 | disposition home or self-care (01) ==
LOC: ED 16:36
DX: R51 Headache (principal); E11.9 Type 2 diabetes mellitus without complications
CPT/HCPCS: 36415; 80053; 85025; 99282

== ENCOUNTER 2017-10-25 16:12 | Emergency (ER) ==
[2017-10-25 16:15] VITALS: BP 139/91; TEMP 97.1; BMI 29.9
--- NOTE | 2017-10-25 16:52 | ED.PDOC ---
General ED Provider: Dr. BUD STEWART Chief Complaint: Back Pain Stated Complaint: back pain Time Seen by Physician: 16:30 (chronic back pain) Mode of Arrival: Walk-In Information Source: Patient Exam Limitations: No limitations Primary Care Provider: ZENA RAMOS Nursing and Triage Documentation Reviewed and Agree: Yes (seen with jill at all times ) Reviewed sepsis parameters & appropriate labs ordered?: Yes System Inflammatory Response Syndrome: Not Applicable Sepsis Protocol: For patient's 13 years and over: Temp is 96.8 and below OR 101 and greater Pulse >90 BPM Resp >20/minute Acutely Altered Mental Status Are patient's symptoms suggestive of a new infection, such as: -Pneumonia -Skin, Soft Tissue -Endocarditis -UTI -Bone, Joint Infection -Implantable Device -Acute Abdominal Infection -Wound Infection -Meningitis -Blood Stream Catheter Infection -Unknown System Inflammatory Response Syndrome: Not Applicable Musculoskeletal Complaint Exam - Back Pain Complaint/Exam Mechanism of Injury: Reports: No known trauma Onset/Duration: 1 day Symptoms Are: Still present Timing: Intermittent Episodes Lasting: Hours Initial Severity: Mild Current Severity: Mild Location: Reports: Discrete Character: Reports: Aching Aggravating: Reports: None Alleviating: Reports: None Associated Signs and Symptoms: Denies: Swelling, Redness, Bruising, Fever, Weakness, Numbness, Tingling, Abdominal pain, Flank pain, Bladder incontinence, Bowel incontinence, Weight loss, Pain with weight bearing Related History: Reports: Similar episode TAD Risk Factors: Reports: None AAA Risk Factors: Reports: Hypertension Cauda Equina Risk Factors: Reports: None Epidural Abcess Risk Factors: Reports: None Related Surgical History: Reports: None Focal Tenderness: No Paraspinal Muscle Tenderness: No Paraspinal Muscle Spasm: No Scoliosis: No Kyphosis: No SLR Test: Right Negative, Left Negative Hip Motion Testing Pain: Right Negative, Left Negative Focal Weakness: Present: None Focal Sensory Loss: Present: None Gait: Present: Normal Differential Diagnoses: Strain, Sprain Review of Systems - Review Of Systems Constitutional: Reports: No symptoms Eyes: Reports: No symptoms Ears, Nose, Mouth, Throat: Reports: No symptoms Respiratory: Reports: No symptoms Cardiac: Reports: No symptoms GI: Reports: No symptoms : Reports: No symptoms Musculoskeletal: Reports: Back pain Skin: Reports: No symptoms Neurological: Reports: No symptoms Endocrine: Reports: No symptoms Hematologic/Lymphatic: Reports: No symptoms All Other Systems: Reviewed and Negative Past Medical History - Past Medical History Previously Healthy: Yes Endocrine: Reports: DM 2 Cardiovascular: Reports: None Respiratory: Reports: None Hematological: Reports: None Gastrointestinal: Reports: None Genitourinary: Reports: None Neuro/Psych: Reports: None Musculoskeletal: Reports: None Cancer: Reports: None - Surgical History General Surgical History: Reports: Unknown - Family History Family History: Reports: Unknown - Social History Smoking Status: Never smoker Hx Substance Use: No Alcohol Screening: Occasionally - Immunizations Tetanus Shot up to Date: No Physical Exam - Physical Exam Appearance: Well-appearing, No pain distress, Well-nourished Eyes: DIEGO, EOMI, Conjunctiva clear ENT: Ears normal, Nose normal, Oropharynx normal Respiratory: Airway patent, Breath sounds clear, Breath sounds equal, Respirations nonlabored Cardiovascular: RRR, Pulses normal, No rub, No murmur GI/: Soft, Nontender, No masses, Bowel sounds normal, No Organomegaly Musculoskeletal: Normal strength, ROM intact, No edema, No calf tenderness Skin: Warm, Dry, Normal color Neurological: Sensation intact, Motor intact, Reflexes intact, Cranial nerves intact, Alert, Oriented Psychiatric: Affect appropriate, Mood appropriate Critical Care Note - Critical Care Note Total Time (mins): 0 Course - Course Vital Signs: Temp Pulse Resp BP Pulse Ox 10/25/17 16:13 97.1 F L 77 20 139/91 H 98 Departure - Departure Time of Disposition: 16:52 Disposition: HOME SELF-CARE Discharge Problem: Backache Instructions: Acute Low Back Pain (ED) Condition: Good Pt referred to PMD for follow-up: Yes IPMP verified?: Yes Additional Instructions: Please call your Family Physician as soon as possible to schedule a follow-up appointment. Prescriptions: Nabumetone [Relafen] 500 mg PO BIDWM #6 tablet Allergies/Adverse Reactions: Allergies No Known Drug Allergies Adverse Reaction (Verified 10/25/17 16:15) Home Medications: Ambulatory Orders Metformin HCl [Fortamet] 500 mg PO BID 05/02/13 Hydrocodone/Acetaminophen [Hydrocodon-Acetaminophen 5-325] 1 each PO ev 4 hrs PRN 02/15/16 Nifedipine [Procardia Xl] 30 mg PO BID 05/17/17 Nabumetone [Relafen] 500 mg PO BIDWM #6 tablet 10/25/17
== END 2017-10-25 17:00 | disposition home or self-care (01) ==
LOC: ED 16:12
DX: M54.9 Dorsalgia, unspecified (principal)
CPT/HCPCS: 99282

== ENCOUNTER → 2017-11-06 | Outpatient (POV) ==
[2017-10-25 16:15] VITALS: BMI 29.9
== END ==
LOC: OUTPT 00:01
PROVIDERS: ATTEND Otolaryngology
DX: H91.90 Unspecified hearing loss, unspecified ear (principal)

== ENCOUNTER 2017-11-07 09:00 | Outpatient (CLI) ==
--- NOTE | 2017-11-07 13:57 | MRI ---
EXAM: MRI thoracic spine without IV contrast. DATE: 07 November 2017. HISTORY: Thoracic pain thoracic spine pain. TECHNIQUE: Sagittal and axial T1W and T2W sequences of the thoracic spine along with sagittal IR and coronal T2W sequences were obtained using 1.2 Janna magnet. No IV contrast. COMPARISON: CT angiogram chest 12 January 2017. FINDINGS: Sagittal counting wall mirror department supervisor sequence through the cervical spine and upper T-spine reveals no a cute c-spine fracture, subluxation, osseous malignancy, or jumped facet. Posterior wedge appearance of the C3 through T1 vertebra appear chronic and may be normal variation. Bone marrow signal is over all normal. Intervertebral discs are normal in height. Cervical and upper thoracic spinal cord reve als no syrinx, cord edema, myelomalacia, or neoplasm. No definitive Chiari 1 malformation. No suspi cious neck mass or cervical lymphadenopathy is identified. There are 12 thoracic vertebra with paired ribs. Slight leftward curvature the upper thoracic spine is noted. No acute T-spine fracture, subluxation, osseous malignancy, or jumped facet is apparent. Thoracic vertebra are normal in height. Bone marrow signal is normal. Small osteophytes are seen at several mid thoracic vertebra. Intervertebral discs are normal in height. Conus medullaris termina franco at T12-L1. No cord edema, syrinx, myelomalacia, or neoplasm is evident. Visible portions of the thyroid gland, trachea, thoracic esophagus, and thoracic aorta are normal. N o suspicious lung mass, pneumonia, or pleural effusion is identified. No acute rib fracture, rib les ion, chest wall mass, or paraspinal lesion is seen. Visible portions of the liver, spleen, adrenal g lands and kidneys reveal no malignancy. Segmental analysis: C7-T1: Minor posterior disc bulge does not cause cord compression or central stenosis. Minor right and mild left foraminal stenoses are due to uncinate hypertrophy. T1-2: Normal, except for minor left foraminal narrowing due to uncinate hypertrophy. T2-3: Normal. T3-4: Normal. T4-5: Normal. T5-6: Normal. T6-7: Posterior midline disc protrusion (1.7 mm AP x 6 mm transverse) flattens the cord anteriorly. No central canal stenosis. T7-8: Normal. T8-9: Normal. T9-10: Normal. T10-11: Normal, except for mild bilateral facet arthropathy. T11-12: Normal, except for mild right facet arthropathy. T12-L1: Normal. IMPRESSIONS: 1. T-spine minor leftward curvature, mild spondylosis, mild facet disease, and minor DDD. 2. T6-7 disc protrusion causes mild cord flattening. No thoracic central canal stenosis. 3. C7-T1 and T1-2 foraminal stenoses as described. 4. Posterior wedge appearance of C3 thru T1 - likely congenital variation.
== END 2017-11-07 09:01 | disposition home or self-care (01) ==
LOC: RAD 09:00
PROVIDERS: ATTEND Family Medicine
DX: M54.6 Pain in thoracic spine (principal)

== ENCOUNTER 2017-11-23 19:25 | Emergency (ER) ==
[2017-11-23 19:36] VITALS: BP 145/85; TEMP 98; BMI 29.0
[2017-11-23] MEDS ORDERED: MOTRIN PO STA (20:17)
[2017-11-23] MEDS ORDERED: TAMIFLU PO STA (20:26)
--- NOTE | 2017-11-23 20:26 | ED.PDOC ---
General ED Provider: Dr. KERA CARNEY Chief Complaint: Fever Stated Complaint: Patient complains of Fever body ache sore throat for the past 3 days. Has taken Tylenol but has not improved. Time Seen by Physician: 20:25 Mode of Arrival: Walk-In Information Source: Patient Exam Limitations: No limitations Primary Care Provider: ZENA RAMOS Nursing and Triage Documentation Reviewed and Agree: Yes Reviewed sepsis parameters & appropriate labs ordered?: Yes System Inflammatory Response Syndrome: Not Applicable Sepsis Protocol: For patient's 13 years and over: Temp is 96.8 and below OR 101 and greater Pulse >90 BPM Resp >20/minute Acutely Altered Mental Status Are patient's symptoms suggestive of a new infection, such as: -Pneumonia -Skin, Soft Tissue -Endocarditis -UTI -Bone, Joint Infection -Implantable Device -Acute Abdominal Infection -Wound Infection -Meningitis -Blood Stream Catheter Infection -Unknown System Inflammatory Response Syndrome: Not Applicable Miscellaneous Complaint Exam - Febrile Illness/Adult Complaint/Exam Onset/Duration: 3 days Symptoms Are: Still present Timing: Constant Initial Severity: Moderate Current Severity: Moderate Associated Signs and Symptoms: Reports: Headache, Arthralgia Related History: Denies: Similar episode, Recent tick bite, Recent tick exposure Pseudomonas Risk Factors: Reports: None Serious Bacterial Infection Risk Factors: Reports: None Current Antibiotic Use: No Specific Findings: Absent: Meningeal signs, Diaphoresis, Joint swelling, Erythema, Cellulitis, Lymphadenopathy, Petechiae, CVA tenderness Differential Diagnoses: Viremia Review of Systems - Review Of Systems Constitutional: Reports: Fever, Malaise Eyes: Reports: No symptoms Ears, Nose, Mouth, Throat: Reports: No symptoms Respiratory: Reports: No symptoms Cardiac: Reports: No symptoms GI: Reports: No symptoms : Reports: No symptoms Musculoskeletal: Reports: No symptoms Skin: Reports: No symptoms Neurological: Reports: Headache Endocrine: Reports: No symptoms Hematologic/Lymphatic: Reports: No symptoms All Other Systems: Reviewed and Negative Past Medical History - Past Medical History Previously Healthy: Yes Endocrine: Reports: DM 2 Cardiovascular: Reports: None Respiratory: Reports: None Hematological: Reports: None Gastrointestinal: Reports: None Genitourinary: Reports: None Neuro/Psych: Reports: None Musculoskeletal: Reports: None Cancer: Reports: None - Surgical History General Surgical History: Reports: Unknown - Family History Family History: Reports: Unknown - Social History Smoking Status: Never smoker Hx Substance Use: No Alcohol Screening: Occasionally - Immunizations Tetanus Shot up to Date: Yes Physical Exam - Physical Exam Appearance: Ill-appearing Ill-appearing: Moderate Pain Distress: Mild Eyes: DIEGO, EOMI, Conjunctiva clear ENT: Ears normal, Nose normal, Oropharynx normal Respiratory: Airway patent, Breath sounds clear, Breath sounds equal, Respirations nonlabored Cardiovascular: RRR, Pulses normal, No rub, No murmur GI/: Soft, Nontender, No masses, Bowel sounds normal, No Organomegaly Musculoskeletal: Normal strength, ROM intact, No edema, No calf tenderness Skin: Warm, Dry, Normal color Neurological: Sensation intact, Motor intact, Reflexes intact, Cranial nerves intact, Alert, Oriented Psychiatric: Anxious Critical Care Note - Critical Care Note Total Time (mins): 0 Course - Course Orders, Labs, Meds: Lab Review 11/23/17 20:00 Influenza A (Rapid) Negative by naat Influenza B (Rapid) Positive by naat H Orders Category Date Time Status FLU A/B MOLECULAR Stat LAB 11/23/17 20:00 Completed RAPID STREP SCREEN [MOLECULAR GROUP A STREP] Stat LAB 11/23/17 20:00 Completed Ibuprofen [Motrin] MEDS 11/23/17 20:17 Discontinued 800 mg PO ONCE STA Oseltamivir Phosphate [Tamiflu] MEDS 11/23/17 20:26 Discontinued 75 mg PO ONCE STA Medications Discontinued Medications Generic Name Dose Route Start Last Admin Trade Name Kevinq PRN Reason Stop Dose Admin Ibuprofen 800 mg 11/23/17 20:17 11/23/17 20:27 Motrin PO 11/23/17 20:18 800 mg ONCE STA Administration Oseltamivir Phosphate 75 mg 11/23/17 20:26 11/23/17 20:36 Tamiflu PO 11/23/17 20:27 75 mg ONCE STA Administration Vital Signs: Temp Pulse Resp BP Pulse Ox 11/23/17 19:25 98 F 76 20 145/85 H 98 Departure - Departure Time of Disposition: 20:43 Disposition: HOME SELF-CARE Discharge Problem: Influenza B Instructions: Influenza (ED) Condition: Good Pt referred to PMD for follow-up: Yes IPMP verified?: No Additional Instructions: Push fluids Follow up with PCP in 3 days Take medications as prescribed. a Prescriptions: Oseltamivir Phosphate [Tamiflu] 75 mg PO Q12HR #10 capsule Allergies/Adverse Reactions: Allergies No Known Drug Allergies Adverse Reaction (Verified 11/23/17 19:34) Home Medications: Ambulatory Orders Metformin HCl [Fortamet] 500 mg PO BID 05/02/13 Hydrocodone/Acetaminophen [Hydrocodon-Acetaminophen 5-325] 1 each PO ev 4 hrs PRN 02/15/16 Nifedipine [Procardia Xl] 30 mg PO BID 05/17/17 Oseltamivir Phosphate [Tamiflu] 75 mg PO Q12HR #10 capsule 11/23/17 Disposition Discussed With: Patient
== END 2017-11-23 21:07 | disposition home or self-care (01) ==
LOC: ED 19:25
DX: J10.1 Influenza due to other identified influenza virus with other respiratory manifestations (principal)
CPT/HCPCS: 87502; 87651; 99283

== ENCOUNTER 2019-01-28 01:54 | Emergency (ER) ==
[2019-01-28 02:01] VITALS: BP 159/89; TEMP 96.8; BMI 28.7
--- NOTE | 2019-01-28 02:30 | ED.PDOC ---
General ED Provider: Dr. ANNIKA WHITTINGTON Chief Complaint: Chest Pain Stated Complaint: chest discomfort,left parasternal,HTN on meds.Diabetes treated as type II Time Seen by Physician: 02:15 Mode of Arrival: Walk-In Information Source: Patient Exam Limitations: No limitations Primary Care Provider: ZENA RAMOS Nursing and Triage Documentation Reviewed and Agree: Yes Does patient meet sepsis criteria?: No System Inflammatory Response Syndrome: Not Applicable Sepsis Protocol: For patient's 13 years and over: Temp is 96.8 and below OR 101 and greater Pulse >90 BPM Resp >20/minute Acutely Altered Mental Status Are patient's symptoms suggestive of a new infection, such as: -Pneumonia -Skin, Soft Tissue -Endocarditis -UTI -Bone, Joint Infection -Implantable Device -Acute Abdominal Infection -Wound Infection -Meningitis -Blood Stream Catheter Infection -Unknown Cardiovascular Complaint Exam - Chest Pain Complaint/Exam Duration: started around midnight Timing: Intermittent Length of Chest Pain Episodes: resolved with BP control/lowewring/ Initial Severity: Moderate Current Severity: Mild Location: Reports: Left anterior Pain Radiates: Reports: None Character: Reports: Aching Aggravating: Reports: None Alleviating: Reports: Rest, Nitro Related History: Reports: Current Charli Inhibitors, Other Related Surgical History: Reports: None History of Healthcare-Acquired Pneumonia: Reports: No AMI/ACS Risk Factors: Reports: Diabetes, Hypertension TAD Risk Factors: Reports: Hypertension Pulmonary Embolism Risk Factors: Reports: None Prior Care for this Complaint: No Recent Stress Test: No Recent Echo/LV Function: No JVD Present: No Subcutaneous Emphysema Present: No Diminshed Breath Sounds: No Reproducible Chest Wall Pain: No Bilateral Pulses Present: Yes Unequal Pulses Noted: No If Risk Factors for AMI/ACS Consider: EKG, Cardiac Enzymes, Aspirin If Risk Factors for TAD Consider: Blood pressure control Documents Reviewed: Medical records, EKG Review of Systems - Review Of Systems Constitutional: Reports: No symptoms, Other Eyes: Reports: No symptoms Ears, Nose, Mouth, Throat: Reports: No symptoms Respiratory: Reports: No symptoms Cardiac: Reports: No symptoms GI: Reports: No symptoms : Reports: No symptoms Musculoskeletal: Reports: No symptoms Skin: Reports: No symptoms Neurological: Reports: No symptoms Endocrine: Reports: No symptoms Hematologic/Lymphatic: Reports: No symptoms All Other Systems: Reviewed and Negative Past Medical History - Past Medical History Previously Healthy: Yes Endocrine: Reports: DM 2 Cardiovascular: Reports: None Respiratory: Reports: None Hematological: Reports: None Gastrointestinal: Reports: None Genitourinary: Reports: None Neuro/Psych: Reports: None Musculoskeletal: Reports: None Cancer: Reports: None - Surgical History General Surgical History: Reports: Unknown - Family History Family History: Reports: Unknown - Social History Smoking Status: Never smoker Hx Substance Use: No Alcohol Screening: Occasionally - Immunizations Tetanus Shot up to Date: (UNKNOWN) Physical Exam - Physical Exam Appearance: Well-appearing Ill-appearing: None Pain Distress: Mild Eyes: DIEGO ENT: Ears normal, Nose normal, Oropharynx normal Neck: Supple Respiratory: Airway patent, Breath sounds clear Cardiovascular: RRR, Pulses normal, No rub, No murmur GI/: Soft, Nontender, Bowel sounds normal Musculoskeletal: Normal strength, ROM intact, No edema, No calf tenderness Skin: Warm, Dry, Normal color Neurological: Sensation intact, Motor intact, Reflexes intact, Cranial nerves intact, Alert, Oriented Psychiatric: Affect appropriate Critical Care Note - Critical Care Note Total Time (mins): 0 Course - Course Hematology/Chemistry: 01/28/19 02:40 01/28/19 02:40 Orders, Labs, Meds: Lab Review 01/28/19 01/28/19 01/28/19 02:40 02:40 02:50 WBC 9.19 RBC 4.42 L Hgb 14.3 Hct 40.8 L MCV 92.3 MCH 32.4 H MCHC 35.0 RDW Coeff of [place] 13.7 Plt Count 154 Immature Gran % (Auto) 0.3 Neut % (Auto) 67.6 Lymph % (Auto) 22.3 [place] % (Auto) 9.2 Eos % (Auto) 0.3 Baso % (Auto) 0.3 Immature Gran # (Auto) 0.0 Neut # (Auto) 6.2 Lymph # (Auto) 2.1 [place] # (Auto) 0.9 Eos # (Auto) 0.0 Baso # (Auto) 0.0 Sodium 140.7 Potassium 3.88 Chloride 101.5 Carbon Dioxide 29.0 Anion Gap 14.08 BUN 20.4 H Creatinine 0.84 Estimated GFR (MDRD) 97.00 BUN/Creatinine Ratio 24.28 Glucose 108.8 H Calcium 8.81 Total Bilirubin 0.33 AST 28.9 ALT 32.9 Alkaline Phosphatase 69.3 Total Creatine Kinase 239.2 H CK-MB (CK-2) 3.370 H CK-MB (CK-2) % 1.4000 Troponin I < 0.012 Total Protein 7.40 Albumin 4.80 Globulin 2.60 Albumin/Globulin Ratio 1.84 Urine Color Yellow Urine Clarity Clear Urine pH 6.5 Ur Specific [place] <=1.005 Urine Protein Negative Urine Glucose (UA) Negative Urine Ketones Negative Urine Blood Negative Urine Nitrite Negative Urine Bilirubin Negative Urine Urobilinogen 0.2 Ur Leukocyte Esterase Negative Orders Category Date Time Status EKG-(ED ONLY) Stat CARDIO 01/28/19 02:32 Ordered ACCUCHECK (ED) [ED ACCUCHECK ASSESSMENT] .ONCE EMERGENCY 01/28/19 02:33 Active IV [ED IV/MEDIPORT/POWERPORT] .ONCE EMERGENCY 01/28/19 02:44 Active CBC W/ AUTO DIFF Stat LAB 01/28/19 02:40 Completed COMPREHENSIVE METABOLIC PANEL Stat LAB 01/28/19 02:40 Results CREATINE KINASE Stat LAB 01/28/19 02:40 Results TROPONIN I Stat LAB 01/28/19 02:40 Results URINALYSIS C & S IF INDICATED Stat LAB 01/28/19 02:50 Completed 0.9 % Sodium Chloride [Saline Flush] MEDS 01/28/19 02:44 Ordered 1 syr IVF PRN PRN Aspirin [Aspirin Chewable] MEDS 01/28/19 02:41 Discontinued 81 mg PO ONCE STA Nitroglycerin [Nitrostat] MEDS 01/28/19 02:38 Discontinued 0.4 mg SL ONCE STA CHEST, 1V AP ONLY Stat RADS 01/28/19 02:32 Completed Medications Generic Name Dose Route Start Last Admin Trade Name Freq PRN Reason Stop Dose Admin Sodium Chloride 1 syr 01/28/19 02:44 Saline Flush IVF PRN PRN To flush IV Discontinued Medications Generic Name Dose Route Start Last Admin Trade Name Freq PRN Reason Stop Dose Admin Aspirin 81 mg 01/28/19 02:41 01/28/19 02:47 Aspirin Chewable PO 01/28/19 02:42 81 mg ONCE STA Administration Nitroglycerin 0.4 mg 01/28/19 02:38 01/28/19 02:48 Nitrostat SL 01/28/19 02:39 0.4 mg ONCE STA Administration Vital Signs: Temp Pulse Resp BP Pulse Ox 01/28/19 01:55 96.8 F L 68 18 159/89 H 97 TONEY Risk Score TONEY Risk Score: Risk Score Odds of by 30D 0 0.1 (0.1-0.2) 1 0.3 (0.2-0.3) 2 0.4 (0.3-0.5) 3 0.7 (0.6-0.9) 4 1.2 (1.0-1.5) 5 2.2 (1.9-2.6) 6 3.0 (2.5-3.6) 7 4.8 (3.8-6.1) Departure - Departure Time of Disposition: 03:37 Disposition: HOME SELF-CARE Discharge Problem: Hypertension associated with diabetes Instructions: Type 2 Diabetes in Adults: New Diagnosis (ED) Condition: Good Pt referred to PMD for follow-up: Yes IPMP verified?: No Additional Instructions: Need to maintain a more steady level of BP mwsication,Follow with PCP CRIS.Start taking Lisinopril BID /10 mg based on original one a day/Total daily dose 20 ,mg [id number] more evenly by BID. Allergies/Adverse Reactions: Allergies No Known Drug Allergies Adverse Reaction (Verified 01/28/19 01:59) Home Medications: Ambulatory Orders Metformin HCl [Fortamet] 500 mg PO BID 05/02/13 Atorvastatin Calcium 10 mg PO DAILY 01/28/19 Hydrocodone/Acetaminophen [Hydrocodone-Acetamin 7.5-300] 1 - 2 tab PO DAILY LAB PRN 01/28/19 Lisinopril 10 mg PO DAILY 01/28/19 Disposition Discussed With: Patient
[2019-01-28] MEDS ORDERED: NITROSTAT SL STA (02:38)
[2019-01-28] MEDS ORDERED: ASPIRIN CHEWABLE PO STA (02:41)
--- NOTE | 2019-01-28 02:57 | DI ---
EXAM: Chest, single view, 01/28/2019 HISTORY: Chest pain COMPARISON: 01/12/2017 FINDINGS / IMPRESSION: Cardiomediastinal countours appear stable. There is no focal pulmonary conso lidation. No pleural effusion or pneumothorax. No acute cardiopulmonary process.
== END 2019-01-28 03:53 | disposition home or self-care (01) ==
LOC: ED 01:54
DX: R07.9 Chest pain, unspecified (principal); I10 Essential (primary) hypertension; E11.9 Type 2 diabetes mellitus without complications; Z79.899 Other long term (current) drug therapy
CPT/HCPCS: 36415; 80053; 81001; 82550; 82553; 84484; 85025; 93005; 93010; 99283